=== PATIENT | male | born 1975 | race Caucasian/White ===

== ENCOUNTER → 2018-07-28 | Outpatient (REF) ==
--- NOTE | 2018-07-28 11:59 | REP ---
AP, LATERAL CERVICAL SPINE, FOUR VIEWS: HISTORY: Degenerative disc disease. The cervical spine is visualized from C1 to the C5-6 level in the lateral radiograph. The patient is status post C5-6 anterior spinal fusion. A fixation plate and bone graft material are present. There is no acute fracture or subluxation. The visualized intervertebral discs are normal in height. An osteophyte is present on C4. IMPRESSION: The patient is status post C5-6 anterior spinal fusion. There is anatomic alignment. Electronically Signed by Michael Jules MD 07/28/2018 12:02 P
--- NOTE | 2018-07-28 12:07 | REP ---
PARTIAL LUMBAR SPINE, THREE VIEWS: HISTORY: Degenerative disc disease. There is no acute fracture or subluxation. The L3-4 through L5-S1 intervertebral discs are decreased in height consistent with disc degeneration. Osteophytes are present at L3 through L5. A limbus vertebra is present at the L5 level. IMPRESSION: Degenerative change as described above. Electronically Signed by Michael Jules MD 07/28/2018 12:12 P
== END ==
LOC: M SMT 10:01
PROVIDERS: ATTEND Internal Medicine
DX: Z00.00 Encounter for general adult medical examination without abnormal findings (principal)